=== PATIENT | female | born 1995 | race Caucasian/White ===

== ENCOUNTER 2024-05-01 19:29 | Emergency (ER) | payer OTHER, SELFPAY ==
--- NOTE | 2024-05-01 | ECG_ITS ---
Test Reason : CHEST PAIN Blood Pressure : */* mmHG Vent. Rate : 113 BPM Atrial Rate : 113 BPM P-R Int : 130 ms QRS Dur : 64 ms QT Int : 310 ms P-R-T Axes : 54 25 37 degrees QTcB Int : 425 ms Sinus tachycardia with Premature atrial complexes with Aberrant conduction Septal infarct , age undetermined Abnormal ECG No previous ECGs available Referred By: Generic ED Physician Electronically Signed By: Abiel Escobar
--- NOTE | ~2024-05-01 | XR_ITS ---
CLINICAL HISTORY: sob 1 view chest x-ray Comparison: None Findings: Lungs are clear without acute infiltrates. No pneumothorax. Heart size normal. No acute bony abnormalities. Impression: No acute processes This document has been electronically signed by: Boris Lu MD on 05/01/2024 22:09:38
[2024-05-01 19:45] VITALS: BP 122/83; PULSE 108; RESP 18; TEMP 36.4; O2SAT 100; BMI 32.9
--- NOTE | 2024-05-01 19:56 | ED.CHESTPAIN ---
HPI - Chest Pain General Chief Complaint: Chest Pain Stated Complaint: chest tightness 5 months Time Seen by Provider: 05/02/24 00:36 Source: patient Mode of arrival: ambulatory Limitations: no limitations History of Present Illness ED Provider: HPI narrative: Patient complaining of mild discomfort in the mid chest for last 1 week worried about preeclampsia as OBG told her that she may get preeclampsia because as she is obese blood pressure was 122/83 on arrival no chest pain at this time patient's feel anxious no cough no shortness a breath no leg swelling or pain patient is 20 weeks no vaginal bleed no abdominal pain Related Data Allergies Allergy/AdvReac Type Severity Reaction Status Date / Time No Known Allergies Allergy Verified 05/01/24 19:49 Review of Systems Review of Systems: Yes all other systems are reviewed and are negative Physical Exam Vital Signs: Vital Signs: Last Vital Signs Temp 98.1 F 05/02/24 01:21 Pulse 69 05/02/24 01:21 Resp 18 05/02/24 01:21 BP 128/67 05/02/24 01:21 Pulse Ox 99 05/02/24 01:21 O2 Del Method Room Air 05/02/24 01:21 BMI result Body Mass Index 32.9 Appearance: Alert. Oriented X3. No acute distress. Anxious Eyes: No pallor or icterus ENT: Pharynx normal. Oral Mucosa moist Neck: Normal inspection. Neck supple. CVS: Normal heart rate and rhythm. Pulses normal. Respiratory: No respiratory distress. Equal air entry bilateral, no wheezing/rales/rhonchi Abdomen: Soft and nontender. Bowel sounds are present, no mass palpable, no CVA tenderness Skin: Skin warm and dry. Normal skin color. Normal skin turgor. Extremities: No lower extremity edema. No calf tenderness Neuro: Oriented X 3. No motor deficit. No sensory deficit.No cerebellar signs , cranial nerves II-XII intact Course Course Course Narrative: This is a rapid medical exam performed by Gail Arguello PA-C. Patient is a 28-year-old female who is currently 5 months , who presents with chest pain and shortness of breath x1 week. Patient states she feels as if there was a advanced solutions architect around her central chest, and that she can not take a complete breath. Her pain is also pleuritic. She denies unilateral calf pain or swelling. Denies recent illness or viral symptoms. We will be screening basic labs, troponin, chest x-ray and EKG, she is tachycardic. But afebrile. Very anxious. The patient is stable and can return to the waiting room pending her full medical assessment. Medical Decision Making Medical Decision Making MDM Narrative: Patient with normal blood pressure no signs of preeclampsia EKG without any ischemic changes patient has atypical chest pain musculoskeletal clinically discharge patient home Independent Interpretation I performed an independent interpretation of an: EKG Interpretation: Sinus rhythm with heart rate 113 beats per minute normal axis no acute ST-T changes no acute ischemia Discharge Plan Discharge Clinical Impression: Atypical chest pain Patient Disposition: Home, Self-Care Instructions: Noncardiac Chest Pain (ED) Additional Instructions: Your chest pain is unlikely from the heart likely musculoskeletal Keep an eye on your blood pressure if it is higher than 140/90 report to the ER or Ob G Your blood pressure today was 128/67 Interventions: ED Discharge Assessment Last Done: 05/02/24 01:21 Discharge Date/Time: 05/02/24 01:22 Print Language: Occitan
[2024-05-01 22:54] VITALS: BP 141/82; PULSE 78; RESP 16; TEMP 36.7; O2SAT 100
[2024-05-02 01:08] VITALS: BP 128/67; PULSE 69; RESP 18; TEMP 36.7; O2SAT 99
[2024-05-02 01:21] VITALS: BP 128/67; PULSE 69; RESP 18; TEMP 36.7; O2SAT 99
== END 2024-05-02 01:22 | disposition home or self-care (01) ==
PROVIDERS: Emergency Provider Internal Medicine
DX: O14.92 Unspecified pre-eclampsia, second trimester (principal); Z3A.20 20 weeks gestation of pregnancy; R07.89 Other chest pain; R06.02 Shortness of breath
CPT/HCPCS: 71045; 93005; 99283; 99284

== ENCOUNTER → 2024-05-01 19:54 | Outpatient (BNV) | payer OTHER, SELFPAY | PROVIDERS: Visit Provider Radiology Diagnostic Radiology | DX: R06.02 Shortness of breath (principal) | CPT/HCPCS: 71045 ==